=== PATIENT | male | born 1935 | race Caucasian/White ===

== ENCOUNTER 2016-10-28 15:12 | Emergency (ER) | payer MEDICARE ==
[2016-10-28 15:37] LABS: #Basophils 0.1 thou/uL (0.0-0.2); #Eosinphils 0.1 thou/uL (0.0-0.7); #Lymphocytes 1.9 thou/uL (1.20-3.40); #Monocytes 0.5 thou/uL (0.11-0.59); #Neutrophils 5.1 thou/uL (1.40-6.50); %Basophils 1.9 % (0.0-1.0); %Eosinophils 1.3 % (0.0-10.0); %Lymphocytes 24.5 % (21.0-51.0); %Monocytes 5.9 % (0.0-10.0); %Neutrophils 66.5 % (42.0-75.0); Hemoglobin 12.8 g/dL (14.0-18.0); Mean Corpuscular HGB CONC 32.8 g/dL (32.0-36.0); Mean Corpuscular Hemoglobin 32.7 pg (27.0-31.0); Mean Corpuscular Volume 99.7 fl (80.0-94.0); Platelet Count 197 thou/uL (130-400); RBC Distribution Width 14.3 % (11.5-14.5); White Blood Cell (WBC) Count 7.6 thou/uL (4.8-10.8)
[2016-10-28 15:46] LABS: INR-International Normal Ratio 3.6; PTT 40.3 SEC (22.9-36.1); Prothrombin Time 35.3 SEC (12.0-14.7)
--- NOTE | 2016-10-28 15:47 | RAD ---
CHEST ONE VIEW: History: Dyspnea. Comparison: 11-15-14 FINDINGS: The cardiac silhouette is magnified by projection. Pulmonary vasculature is more engorged than on t he previous study. Mediastinum is midline with aortic calcification and a dual-lead left subclavian cardiac electronic device. No lobar consolidation or pneumothorax evident. personnel monitor leads overlie the chest. IMPRESSION: Pulmonary vasculature congestion. POS: [facility]
[2016-10-28 16:00] LABS: ALT (SGPT) 270 U/L (0-55); AST (SGOT) 228 U/L (5-34); Albumin 3.2 g/dL (3.4-4.8); Alkaline Phosphatase 73 U/L (40-150); Anion Gap 16 mmol/L (10-20); BUN (Urea Nitrogen) 51 mg/dL (8.4-25.7); Bilirubin, Total 1.6 mg/dL (0.2-1.2); Calc. Creatinine Clearance 0 mL/min (70-130); Calcium 9.1 mg/dL (7.8-10.44); Carbon Dioxide 23 mmol/L (23-31); Chloride 105 mmol/L (98-107); Estimated GFR-MDRD 21; Globulin 2.7 g/dL (2.4-3.5); Glucose 73 mg/dL (83-110); Magnesium 2.2 mg/dL (1.6-2.6); Phosphorus 3.7 mg/dL (2.3-4.7); Potassium 4.1 mmol/L (3.5-5.1); Protein, Total 5.9 g/dL (5.8-8.1); Sodium 140 mmol/L (136-145)
[2016-10-28 16:02] LABS: CKMB 1.8 ng/mL (0-6.6); Troponin I 0.121 ng/mL (< 0.028)
[2016-10-28] MEDS ORDERED: Dextrose 50% Abboject 50 ML SYRINGE ONE (16:05)
[2016-10-28] MEDS ORDERED: Furosemide 40 MG/4 ML VIAL ONE (16:28)
[2016-10-28 17:03] LABS: Free T4 (Free Thyroxine) 1.28 ng/dL (0.70-1.48); T4 7.3 ug/dL (4.87-11.72)
[2016-10-28 17:19] LABS: Bilirubin Negative (Negative); Blood, Urine Trace (Negative); Glucose, Urine (Dipstick) Negative (Negative); Leukocyte Negative (Negative); Nitrite Positive (Negative); Protein, Urine (Dipstick) 30 mg/dL (Neg-Trace); Specific Gravity, Urine 1.025 (1.005-1.030); Urobilinogen 0.2 mg/dL (0.2-1.0)
[2016-10-28 17:21] LABS: Clarity Hazy (Clear)
[2016-10-28 17:22] LABS: Bacteria/HPF Rare-Few HPF (None Seen); Crystals/HPF 1+ AMORPH PHOS HPF (Negative); Other Microscopic Description C&S SEET UP; RBC/HPF 0-3 HPF (0-3); Squamous Epithelial 0-3 HPF (0-3); WBC/HPF 0-3 HPF (0-3)
[2016-10-29 17:39] LABS: Free T3 1.39 pg/mL (1.71-3.71)
== END 2016-10-28 16:58 | disposition short-term general hospital (02) ==
LOC: MADERS 15:12
DX: E87.70 Fluid overload, unspecified (principal); N17.9 Acute kidney failure, unspecified; R74.0 Nonspecific elevation of levels of transaminase and lactic acid dehydrogenase [LDH]; E78.5 Hyperlipidemia, unspecified; D64.9 Anemia, unspecified; I25.10 Atherosclerotic heart disease of native coronary artery without angina pectoris; I10 Essential (primary) hypertension; Z86.718 Personal history of other venous thrombosis and embolism; Z79.4 Long term (current) use of insulin; Z79.01 Long term (current) use of anticoagulants; Z79.899 Other long term (current) drug therapy
CPT/HCPCS: 36415; 36416; 51702; 71010; 80053; 81003; 81015; 82553; 83735; 83880; 84100; 84436; 84439; 84443; 84481; 84484; 85025; 85610; 85730; 87086; 93005; 96374; 96375; J1940

== ENCOUNTER 2016-11-15 13:31 | Outpatient (CLI) | payer MEDICARE ==
[2016-11-15 14:18] LABS: Albumin 3.7 g/dL (3.4-4.8); Anion Gap 15 mmol/L (10-20); BUN (Urea Nitrogen) 29 mg/dL (8.4-25.7); Calc. Creatinine Clearance 0 mL/min (70-130); Calcium 9.8 mg/dL (7.8-10.44); Carbon Dioxide 23 mmol/L (23-31); Chloride 108 mmol/L (98-107); Estimated GFR-MDRD 37; Glucose 135 mg/dL (83-110); Magnesium 1.8 mg/dL (1.6-2.6); Potassium 4.1 mmol/L (3.5-5.1); Sodium 142 mmol/L (136-145)
== END 2016-11-15 13:32 | disposition home or self-care (01) ==
LOC: MADLAB 13:31
PROVIDERS: ATTEND Internal Medicine Nephrology
DX: I12.9 Hypertensive chronic kidney disease with stage 1 through stage 4 chronic kidney disease, or unspecified chronic kidney disease (principal); N18.3 Chronic kidney disease, stage 3 (moderate); I13.0 Hypertensive heart and chronic kidney disease with heart failure and stage 1 through stage 4 chronic kidney disease, or unspecified chronic kidney disease
CPT/HCPCS: 36415; 80048; 82040; 83735

== ENCOUNTER 2016-12-09 16:34 | Outpatient (CLI) | payer MEDICARE ==
--- NOTE | 2016-12-09 19:58 | CT ---
BRAIN CT WITHOUT IV CONTRAST: History: 81-year-old male with contusion to right side of head following a fall. FINDINGS: No focal mass or midline shift. Bilateral atrophy and chronic white matter ischemic change. There is a 0.6 cm diameter hyperdense focus in the midline at the level of the third ventricle, evidence for a colloid cyst. No mass effect or midline shift. No acute hemorrhage. 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 Atrop hy and chronic white matter ischemic changes. No acute mass or hemorrhage. POS: [facility]
== END 2016-12-09 16:35 | disposition home or self-care (01) ==
LOC: MADRAD 16:34
PROVIDERS: ATTEND Family Medicine
DX: T14.8 Other injury of unspecified body region (principal); Q04.6 Congenital cerebral cysts
CPT/HCPCS: 70450

== ENCOUNTER 2016-12-18 11:12 | Outpatient (CLI) | payer MEDICARE ==
[2016-12-18 11:35] LABS: #Basophils 0.1 thou/uL (0.0-0.2); #Eosinphils 0.2 thou/uL (0.0-0.7); #Lymphocytes 1.1 thou/uL (1.20-3.40); #Monocytes 0.5 thou/uL (0.11-0.59); #Neutrophils 3.8 thou/uL (1.40-6.50); %Eosinophils 4.2 % (0.0-10.0); %Lymphocytes 19.8 % (21.0-51.0); %Monocytes 8.4 % (0.0-10.0); %Neutrophils 66.6 % (42.0-75.0); Hemoglobin 11.5 g/dL (14.0-18.0); Mean Corpuscular HGB CONC 32.3 g/dL (32.0-36.0); Mean Corpuscular Hemoglobin 32.4 pg (27.0-31.0); Mean Corpuscular Volume 100.5 fl (80.0-94.0); Mean Platelet Volume 5.4 fL (7.4-10.4); Platelet Count 204 thou/uL (130-400); RBC Distribution Width 14.9 % (11.5-14.5); Red Blood Cell (RBC) Count 3.53 mill/uL (4.70-6.10); White Blood Cell (WBC) Count 5.7 thou/uL (4.8-10.8)
[2016-12-18 13:25] LABS: Hemoglobin A1c 5.7 % (4.0-6.0)
[2016-12-18 13:27] LABS: ALT (SGPT) 32 U/L (8-55); AST (SGOT) 33 U/L (5-34); Albumin 3.4 g/dL (3.4-4.8); Alkaline Phosphatase 67 U/L (40-150); Anion Gap 16 mmol/L (10-20); BUN (Urea Nitrogen) 23 mg/dL (8.4-25.7); Bilirubin, Direct 0.2 mg/dL (0.1-0.3); Bilirubin, Total 0.4 mg/dL (0.2-1.2); Calc. Creatinine Clearance 0 mL/min (70-130); Calcium 8.9 mg/dL (7.8-10.44); Carbon Dioxide 22 mmol/L (23-31); Chloride 107 mmol/L (98-107); Cholesterol 123 mg/dl (< 200 Desired); Estimated GFR-MDRD 40; Glucose 190 mg/dL (83-110); HDL Cholesterol 41 mg/dL (>60 Neg Risk); LDL Cholesterol, Calculated 62 mg/dL; Potassium 4.6 mmol/L (3.5-5.1); Protein, Total 6.3 g/dL (5.8-8.1); Sodium 140 mmol/L (136-145); Triglycerides 101 mg/dL (Less than 150)
== END 2016-12-18 11:13 | disposition home or self-care (01) ==
LOC: MADLABBHPM 11:12
PROVIDERS: ATTEND Family Medicine
DX: E11.9 Type 2 diabetes mellitus without complications (principal)
CPT/HCPCS: 36415; 80048; 80061; 80076; 83036; 85025

== ENCOUNTER 2017-01-28 11:14 | Outpatient (CLI) | payer MEDICARE ==
[2017-01-28 12:35] LABS: Anion Gap 14 mmol/L (10-20); BUN (Urea Nitrogen) 23 mg/dL (8.4-25.7); Calc. Creatinine Clearance 0 mL/min (70-130); Calcium 9.3 mg/dL (7.8-10.44); Carbon Dioxide 25 mmol/L (23-31); Chloride 111 mmol/L (98-107); Estimated GFR-MDRD 33; Glucose 74 mg/dL (83-110); Potassium 4.4 mmol/L (3.5-5.1); Sodium 146 mmol/L (136-145)
== END 2017-01-28 11:15 | disposition home or self-care (01) ==
LOC: MADLAB 11:14
PROVIDERS: ATTEND Internal Medicine Cardiovascular Disease
DX: I42.8 Other cardiomyopathies (principal)
CPT/HCPCS: 36415; 80048

== ENCOUNTER 2017-03-20 10:30 | Outpatient (CLI) | payer MEDICARE ==
[2017-03-20 11:01] LABS: Hemoglobin A1c 5.4 % (4.0-6.0)
[2017-03-20 11:17] LABS: #Eosinphils 0.2 thou/uL (0.0-0.7); #Lymphocytes 1.1 thou/uL (1.20-3.40); #Monocytes 0.4 thou/uL (0.11-0.59); #Neutrophils 4.1 thou/uL (1.40-6.50); %Basophils 0.7 % (0.0-1.0); %Eosinophils 3.7 % (0.0-10.0); %Lymphocytes 19.4 % (21.0-51.0); %Monocytes 6.4 % (0.0-10.0); %Neutrophils 69.8 % (42.0-75.0); Hemoglobin 10.9 g/dL (14.0-18.0); Mean Corpuscular HGB CONC 32.7 g/dL (32.0-36.0); Mean Corpuscular Hemoglobin 31.2 pg (27.0-31.0); Mean Corpuscular Volume 95.5 fl (80.0-94.0); Mean Platelet Volume 5.6 fL (7.4-10.4); Platelet Count 202 thou/uL (130-400); White Blood Cell (WBC) Count 5.8 thou/uL (4.8-10.8)
[2017-03-20 11:31] LABS: ALT (SGPT) 24 U/L (8-55); AST (SGOT) 30 U/L (5-34); Albumin 3.5 g/dL (3.4-4.8); Alkaline Phosphatase 71 U/L (40-150); Anion Gap 14 mmol/L (10-20); BUN (Urea Nitrogen) 25 mg/dL (8.4-25.7); Bilirubin, Direct 0.2 mg/dL (0.1-0.3); Bilirubin, Total 0.5 mg/dL (0.2-1.2); Calc. Creatinine Clearance 0 mL/min (70-130); Calcium 9.3 mg/dL (7.8-10.44); Carbon Dioxide 24 mmol/L (23-31); Cardiac Risk 2.8 (Less than 4.5); Chloride 109 mmol/L (98-107); Cholesterol 128 mg/dl (< 200 Desired); Estimated GFR-MDRD 36; Glucose 145 mg/dL (83-110); HDL Cholesterol 45 mg/dL (>60 Neg Risk); LDL Cholesterol, Calculated 63 mg/dL; Potassium 4.4 mmol/L (3.5-5.1); Protein, Total 6.9 g/dL (5.8-8.1); Sodium 143 mmol/L (136-145); Triglycerides 98 mg/dL (Less than 150)
== END 2017-03-20 10:31 | disposition home or self-care (01) ==
LOC: MADLABBHPM 10:30
PROVIDERS: ATTEND Family Medicine
DX: I48.91 Unspecified atrial fibrillation (principal); E11.9 Type 2 diabetes mellitus without complications
CPT/HCPCS: 36415; 80048; 80061; 80076; 83036; 85025

== ENCOUNTER 2017-04-17 11:07 | Outpatient (CLI) | payer MEDICARE ==
[2017-04-17 11:41] LABS: Anion Gap 16 mmol/L (10-20); BUN (Urea Nitrogen) 23 mg/dL (8.4-25.7); Calc. Creatinine Clearance 0 mL/min (70-130); Calcium 9.2 mg/dL (7.8-10.44); Carbon Dioxide 24 mmol/L (23-31); Chloride 108 mmol/L (98-107); Estimated GFR-MDRD 34; Glucose 114 mg/dL (83-110); Potassium 4.4 mmol/L (3.5-5.1); Sodium 144 mmol/L (136-145)
== END 2017-04-17 11:08 | disposition home or self-care (01) ==
LOC: MADLAB 11:07
PROVIDERS: ATTEND Internal Medicine Cardiovascular Disease
DX: I42.8 Other cardiomyopathies (principal); I10 Essential (primary) hypertension
CPT/HCPCS: 36415; 80048

== ENCOUNTER 2017-05-08 10:48 | Outpatient (CLI) | payer MEDICARE ==
[2017-05-08 11:58] LABS: Anion Gap 13 mmol/L (10-20); BUN (Urea Nitrogen) 31 mg/dL (8.4-25.7); Calc. Creatinine Clearance 0 mL/min (70-130); Calcium 9.5 mg/dL (7.8-10.44); Carbon Dioxide 26 mmol/L (23-31); Chloride 107 mmol/L (98-107); Estimated GFR-MDRD 28; Glucose 132 mg/dL (83-110); Potassium 4.3 mmol/L (3.5-5.1); Sodium 142 mmol/L (136-145)
[2017-05-08 17:14] LABS: Creatinine, Urine 59.23 mg/dL (63-166); Protein, Urine Random Quant Less than 10 mg/dL
== END 2017-05-08 10:49 | disposition home or self-care (01) ==
LOC: MADLAB 10:48
PROVIDERS: ATTEND Internal Medicine Nephrology
DX: I13.0 Hypertensive heart and chronic kidney disease with heart failure and stage 1 through stage 4 chronic kidney disease, or unspecified chronic kidney disease (principal); N18.9 Chronic kidney disease, unspecified; I50.9 Heart failure, unspecified; R60.0 Localized edema
CPT/HCPCS: 36415; 80048; 82306; 82570; 83970; 84156

== ENCOUNTER 2017-10-20 15:15 | Outpatient (CLI) | payer MEDICARE ==
--- NOTE | 2017-10-20 15:55 | RAD ---
CHEST PA AND LATERAL: History: 82-year-old male with history of left rib pain following a fall today. FINDINGS: Left ICD. Minimal stable increased markings in the left base and slight costophrenic angle blunting. No pneumothorax. No pneumonia. Right lung is clear. IMPRESSION: Minimal stable blunting in the left costophrenic angle. No pneumothorax or other significant acute pr ocess. POS: [facility]
--- NOTE | 2017-10-20 15:56 | RAD ---
LEFT RIBS THREE VIEWS: History: Left rib pain following a fall today. FINDINGS: There is a minimally displaced fracture involving the posterolateral aspect of the left 10th rib. No pneumothorax or significant acute pleural effusion. IMPRESSION: Minimally displaced fracture of the left posterior 10th rib. POS: [facility]
== END 2017-10-20 15:16 | disposition home or self-care (01) ==
LOC: MADRAD 15:15
PROVIDERS: ATTEND Family Medicine
DX: S22.39XA Fracture of one rib, unspecified side, initial encounter for closed fracture (principal)
CPT/HCPCS: 71046

== ENCOUNTER 2018-03-24 13:42 | Outpatient (CLI) | payer MEDICARE ==
[2018-03-24 14:58] LABS: ALT (SGPT) 18 U/L (8-55); AST (SGOT) 24 U/L (5-34); Albumin 3.9 g/dL (3.4-4.8); Alkaline Phosphatase 72 U/L (40-150); Anion Gap 16 mmol/L (10-20); BUN (Urea Nitrogen) 23 mg/dL (8.4-25.7); Bilirubin, Total 0.8 mg/dL (0.2-1.2); Calc. Creatinine Clearance 0 mL/min (70-130); Calcium 9.6 mg/dL (7.8-10.44); Carbon Dioxide 24 mmol/L (23-31); Cardiac Risk 3.3 (Less than 4.5); Chloride 106 mmol/L (98-107); Cholesterol 142 mg/dl (< 200 Desired); Estimated GFR-MDRD 41; Globulin 3.3 g/dL (2.4-3.5); Glucose 137 mg/dL (83-110); HDL Cholesterol 43 mg/dL (>60 Neg Risk); LDL Cholesterol, Calculated 73 mg/dL; Potassium 4.2 mmol/L (3.5-5.1); Protein, Total 7.2 g/dL (5.8-8.1); Sodium 142 mmol/L (136-145); Triglycerides 132 mg/dL (Less than 150)
== END 2018-03-24 13:43 | disposition home or self-care (01) ==
LOC: MADLAB 13:42
PROVIDERS: ATTEND Internal Medicine Cardiovascular Disease
DX: I48.91 Unspecified atrial fibrillation (principal); E78.00 Pure hypercholesterolemia, unspecified
CPT/HCPCS: 36415; 80053; 80061; 84443

== ENCOUNTER 2018-04-06 11:02 | Outpatient (CLI) | payer MEDICARE ==
[2018-04-06 11:59] LABS: Hemoglobin 13.7 g/dL (14.0-18.0)
[2018-04-06 12:29] LABS: Anion Gap 17 mmol/L (10-20); BUN (Urea Nitrogen) 22 mg/dL (8.4-25.7); Calc. Creatinine Clearance 0 mL/min (70-130); Calcium 9.5 mg/dL (7.8-10.44); Carbon Dioxide 21 mmol/L (23-31); Chloride 109 mmol/L (98-107); Estimated GFR-MDRD 35; Glucose 148 mg/dL (83-110); Potassium 4.3 mmol/L (3.5-5.1); Sodium 143 mmol/L (136-145)
== END 2018-04-06 11:03 | disposition home or self-care (01) ==
LOC: MADLAB 11:02
PROVIDERS: ATTEND Internal Medicine Nephrology
DX: N18.3 Chronic kidney disease, stage 3 (moderate) (principal); D63.1 Anemia in chronic kidney disease
CPT/HCPCS: 36415; 80048; 82570; 85014; 85018

== ENCOUNTER 2019-04-26 10:05 | Outpatient (CLI) | payer MEDICARE ==
[2019-04-26 10:49] LABS: ALT (SGPT) 17 U/L (8-55); AST (SGOT) 24 U/L (5-34); Albumin 3.7 g/dL (3.4-4.8); Alkaline Phosphatase 89 U/L (40-150); Anion Gap 15 mmol/L (10-20); BUN (Urea Nitrogen) 15 mg/dL (8.4-25.7); Bilirubin, Total 0.6 mg/dL (0.2-1.2); Calc. Creatinine Clearance 0 mL/min (70-130); Calcium 9.4 mg/dL (7.8-10.44); Carbon Dioxide 26 mmol/L (23-31); Cardiac Risk 3.1 (Less than 4.5); Chloride 105 mmol/L (98-107); Cholesterol 127 mg/dl (< 200 Desired); Estimated GFR-MDRD 44; Globulin 3.5 g/dL (2.4-3.5); Glucose 118 mg/dL (83-110); HDL Cholesterol 41 mg/dL (>60 Neg Risk); LDL Cholesterol, Calculated 60 mg/dL; Potassium 4.2 mmol/L (3.5-5.1); Protein, Total 7.2 g/dL (5.8-8.1); Sodium 142 mmol/L (136-145); Triglycerides 128 mg/dL (Less than 150)
--- NOTE | 2019-04-26 12:10 | RAD ---
PA AND LATERAL CHEST: Date: 04/26/19 HISTORY: Atrial fibrillation. COMPARISON: 10/20/17 study. FINDINGS: Heart size within normal limits with atherosclerotic changes of the aorta. A pacemaker is present. Th e lungs are clear of any infiltrative process. IMPRESSION: Mild chronic lung change. Stable chest. POS: [facility]
== END 2019-04-26 10:06 | disposition home or self-care (01) ==
LOC: MADLAB 10:05
PROVIDERS: ATTEND Internal Medicine Cardiovascular Disease
DX: I48.91 Unspecified atrial fibrillation (principal); E78.00 Pure hypercholesterolemia, unspecified
CPT/HCPCS: 36415; 71046; 80053; 80061; 84443